=== PATIENT | female | born 1995 | race Caucasian/White ===

== ENCOUNTER 2017-06-30 12:34 | Emergency (ER) | payer BC ==
[~2017-06-30] VITALS: Ht 170.2 cm; Wt 72.4 kg
[2017-06-30 12:53] VITALS: BP 140/74; PULSE 130; RESP 18; TEMP 99.4; O2SAT 98
--- NOTE | 2017-06-30 14:53 | PD ---
HPI Chief Complaint: Laceration/Skin Injury Time Seen by Provider: 14:06 Travel History International Travel<30 days: No Contact w/Intl Traveler<30days: No Traveled to known affect area: No History of Present Illness HPI 21-year-old female who sustained multiple lacerations and abrasions to the left and right buttocks when the countertop she was sitting on broke. Injury occurred prior to arrival. Pain reports pain at the site of the lacerations. Tetanus immunization up-to-date. Symptom severity is mild. Bleeding is well- controlled. PFSH Past Medical History Medical History: Denies Significant Hx Diminished Hearing: No Tetanus Vaccination: Unknown Influenza Vaccination: No ?: Not LMP: 2 weeks ago Past Surgical History Tonsillectomy: Yes Other Surgery: Yes (wisdom teeth, deviated septum) Social History Alcohol Use: Yes (occassionally) Tobacco Use: Yes (11/01 ppd) Substance Use: No Allergies-Medications (Allergen,Severity, Reaction): Coded Allergies: No Known Allergies (Verified Allergy, Unknown, 06/30/17) Reported Meds & Prescriptions Reported Meds & Active Scripts Active No Active Prescriptions or Reported Medications Review of Systems Except as stated in HPI: all other systems reviewed are Neg Physical Exam Narrative GENERAL: Well-nourished, well-developed patient. SKIN: Focused skin assessment warm/dry. Numerous superficial abrasions to bilateral buttocks. 2 lacerations in particular going to require suturing. Wound #1 4 CM laceration. Wound #2 1.5 CM laceration. NECK: Supple, trachea midline. No JVD or lymphadenopathy. CARDIOVASCULAR: Regular rate and rhythm without murmurs, gallops, or rubs. RESPIRATORY: Breath sounds equal bilaterally. No accessory muscle use. GASTROINTESTINAL: Abdomen soft, non-tender, nondistended. MUSCULOSKELETAL: No cyanosis, or edema. BACK: Nontender without obvious deformity. No CVA tenderness. Data Data Last Documented VS Vital Signs Date Time Temp Pulse Resp B/P (MAP) Pulse Ox O2 Delivery O2 Flow Rate FiO2 06/30/17 12:53 99.4 130 18 140/74 (96) 98 MDM Medical Decision Making Medical Screen Exam Complete: Yes Emergency Medical Condition: Yes Differential Diagnosis Laceration, abrasions, contusions Narrative Course 21-year-old female who sustained multiple lacerations and abrasions to the left and right buttocks when the countertop she was sitting on broke. Patient has 2 lacerations and which needed to be sutured wound #1 measured 4 cm, wound #2 measured 1.5 cm. Both wounds were sutured closed. There was no evidence of retained foreign body. Wound care discussed. Patient verbalizes understanding agrees to plan Procedures Procedure Narrative LACERATION LOCATION: Left and right buttocks LENGTH: Wound #1 4 cm, wound #2 1.5 cm NUMBER OF STITCHES/JUDAH: [13 ] REPAIR: The area of the laceration was prepped with Betadine and sterilely draped. The laceration was infiltrated with 1% lidocaine. The wound was copiously irrigated and explored without evidence of foreign body, tendon injury or neurovascular injury. The wound was closed using 5-0 Ethilon. This was a single layer repair. A sterile dressing was applied. The patient was advised to keep the dressing clean and dry. Patient tolerated the procedure well. Diagnosis Primary Impression: Laceration of buttock Qualified Codes: S31.801A - Laceration without foreign body of unspecified buttock, initial encounter Referrals: Primary Care Physician Scripts No Active Prescriptions or Reported Meds Disposition: DISCHARGE HOME Condition: Stable Erica White Jun 30, 2017 14:53
== END 2017-06-30 15:15 | disposition home or self-care (01) ==
LOC: PHED 12:34 → PHEFT 15:15
DX: S31.821A Laceration without foreign body of left buttock, initial encounter (principal); S31.811A Laceration without foreign body of right buttock, initial encounter; F17.200 Nicotine dependence, unspecified, uncomplicated; W45.8XXA Other foreign body or object entering through skin, initial encounter
CPT/HCPCS: 12002